=== PATIENT | male | born 1950 | race African-American/Black ===

== ENCOUNTER 2020-04-25 11:19 | Inpatient (IN) | payer MEDICARE, OTHER ==
[~2020-04-25] VITALS: Ht 188 cm; Wt 102.1 kg
[2020-04-25] MEDS ORDERED: ACETAMINOPHEN 650 MG SUPP PR NR (11:30)
[2020-04-25] MEDS ORDERED: ACETAMINOPHEN 650 MG SUPP PR ONE (11:42)
[2020-04-25] MEDS ORDERED: SODIUM CHLORIDE 0.9% 1000ML 1,000 ML IV STA (11:45)
[2020-04-25] MEDS ORDERED: CEFTRIAXONE SOD 1 GM/NS 50 ML 50 ML IV SCH (11:45)
[2020-04-25] MEDS ORDERED: DEXAMETHASONE SOD PHOS INJ 4 MG/ML VIAL IV ONE (11:45)
[2020-04-25] MEDS ORDERED: DEXAMETHASONE SOD PHOS INJ 4 MG/ML VIAL ONE (11:54)
[2020-04-25] MEDS ORDERED: CEFTRIAXONE SOD 1 GM VIAL ONE (11:54)
[2020-04-25] MEDS ORDERED: AZITHROMYCIN 500MG/NS 250 ML 250 ML ONE (11:55)
[2020-04-25 12:02] LABS: HEMATOCRIT 43.4 % (38.2-49.6); HEMOGLOBIN 13.5 g/dL (14.0-18.0); LYMPHOCYTES # (AUTO) 0.6 (1.0-3.2); LYMPHOCYTES % 8.7 % (18.0-39.1); MEAN CORPUSCULAR HEMOGLOBIN 28.2 pg (28-32); MEAN CORPUSCULAR HGB CONC 31.1 g/dL (31-35); MEAN CORPUSCULAR VOLUME 90.8 fL (81-99); MONOCYTES # (AUTO) 0.4 (0.2-0.8); MONOCYTES % 6.4 % (4.4-11.3); NEUTROPHILS # (AUTO) 5.5 (2.1-6.9); NEUTROPHILS % 84.1 % (38.7-80.0); PLATELET COUNT 181 x10e3/uL (140-360); RED BLOOD COUNT 4.78 x10e6/uL (4.3-5.7); RED CELL DISTRIBUTION WIDTH 16.8 % (11.7-14.4)
[2020-04-25 12:11] LABS: INR 1.36; PROTHROMBIN TIME 17.7 seconds (11.9-14.5)
[2020-04-25 12:12] LABS: PARTIAL THROMBOPLASTIN TIME 40.1 seconds (23.8-35.5)
[2020-04-25 12:14] LABS: CLARITY,URINE CLEAR (CLEAR); COLOR,URINE YELLOW (YELLOW)
[2020-04-25 12:15] LABS: KETONES,URINE NEGATIVE (NEGATIVE); LEUKOCYTE ESTERASE ,URINE LARGE (NEGATIVE); NITRITE,URINE NEGATIVE (NEGATIVE); PROTEIN,URINE DIPSTICK 2+ (NEGATIVE); URINE UROBILINOGEN 1 mg/dL (0.2 - 1)
[2020-04-25 12:16] LABS: BACTERIA,URINE RARE /HPF; BILIRUBIN,URINE NEGATIVE (NEGATIVE); EPITHELIAL CELLS,URINE FEW /LPF
[2020-04-25 12:19] LABS: ALBUMIN 2.7 g/dL (3.5-5.0); ALBUMIN/GLOBULIN RATIO 0.6 (0.8-2.0); ANION GAP 8.7 mmol/L (8-16); CALCIUM 10.3 mg/dL (8.4-10.2); CREATININE, SERUM 2.81 mg/dL (0.72-1.25); POTASSIUM 3.7 mmol/L (3.5-5.1)
[2020-04-25 12:26] LABS: CREATINE KINASE MB 0.8 ng/mL (0-5.0)
[2020-04-25] MEDS: AZITHROMYCIN 500MG/NS 250 ML 250 ML IV SCH (12:45)
--- NOTE | 2020-04-25 12:58 | Diagnostic Imaging Report ---
Examination: Single AP view of the chest. COMPARISON: None. INDICATION: Shortness of breath DISCUSSION: Lines/tubes: None. Lungs: Multifocal groundglass and airspace consolidation. Pleura: There is no pleural effusion or pneumothorax. Heart and mediastinum: The heart and the mediastinum are unremarkable. Bones and soft tissues: No acute bony abnormalities. Extensive IMPRESSION: 1. Multifocal pneumonia Signed by: Dr. Nikhil Noriega M.D. on 04/25/2020 12:55 PM
[2020-04-25] MEDS ORDERED: TERAZOSIN HCL2 MG (14:18)
[2020-04-25] MEDS ORDERED: FUROSEMIDE40 MG (14:18)
[2020-04-25] MEDS ORDERED: ATORVASTATIN CA20 MG (14:18)
[2020-04-25] MEDS ORDERED: AMLODIPINE BESYL5 MG (14:18)
[2020-04-25] MEDS ORDERED: MINOXIDIL2.5 MG (14:18)
[2020-04-25] MEDS ORDERED: OMEPRAZOLE20 MG (14:18)
[2020-04-25] MEDS ORDERED: HYDRALAZINE HCL50 MG (14:18)
[2020-04-25] MEDS ORDERED: ALLOPURINOL100 MG (14:18)
[2020-04-25] MEDS ORDERED: ELIQUIS5 MG (14:18)
[2020-04-25] MEDS ORDERED: METOPROLOL TART50 MG (14:18)
--- NOTE | 2020-04-25 14:35 | Emergency Department Note ---
History of Present Illnes History of Present Illness Chief Complaint: COVID PUI History of Present Illness This is a 70 year old male FROM [facility] WITH DX COVID. SOB. FEVER. BASELINE AAOX1. 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 Meat Lugger Required: No Onset (how long ago): unknown Severity: moderate Onset quality: gradual Timing of current episode: constant Chronicity: new Context: Reports recent illness Relieving factors: none Exacerbating factors: none Associated symptoms: Reports cough, Reports shortness of breath Past Medical/Family History Physician Review I have reviewed the patient's past medical and family history. Any updates have been documented here. Past Medical History Recent Fever: Yes Clinical Suspicion of Infectio: Yes New/Unexplained Change in Ment: No Past Medical History: Hypertension, Diabetes, CHF, CVA, Anemia, Other Mental Illness, GERD, Hyperlipedemia Other Medical History: DEMENTIA BPH Social History Smoking Cessation: Unknown if ever smoked Counseling Performed: No Alcohol Use: None Any Illegal Drug Use: No (BRANDO) TB Exposure/Symptoms: No Physically hurt or threatened: No Family History Family history of heart diseas: No Other Any Pre-Existing Lines (PICC,: No Review of Systems ROS Narrative Unable to obtain ROS: Unable to obtain due to, altered mental status Physical Exam Related Data Allergies: Coded Allergies: No Known Allergies (Unverified , 04/25/20) Triage Vital Signs Vital Signs Date Time Temp Pulse Resp B/P (MAP) Pulse Ox O2 Delivery O2 Flow Rate FiO2 04/25/20 11:20 103.7 134 40 126/93 90 Nasal Cannula 4.0 Vital signs reviewed: Yes (O2 SAT 81% ON RA BECK OPERATOR) Physical Exam CONSTITUTIONAL Constitutional: Present cachectic, Present ill appearing HENT HENT: Present normocephalic, Present atraumatic, Present oropharynx clear/moist, Present nose normal HENT L/R: Present left ext ear normal, Present right ext ear normal EYES Eyes: Reports PERRL, Reports conjunctivae normal NECK Neck: Present ROM normal PULMONARY Pulmonary: Present respiratory distress (TACHYPNEIC), Present rhonchi CARDIOVASCULAR Cardiovascular: Present irregular rhythm, Present tachycardia GASTROINTESTINAL Abdominal: Present soft, Present nontender, Present bowel sounds normal GENITOURINARY Genitourinary: Present other (LINEAR SKIN ULCERATION ON PENIS - APPEARS CHRONIC, SCROTUM ENLARGED WITH FLUID) SKIN Skin: Present warm, Present dry MUSCULOSKELETAL Musculoskeletal: Present ROM normal NEUROLOGICAL Neurological: Present alert, Present oriented x 3, Present no gross motor or sensory deficits PSYCHOLOGICAL Psychological: Present other (SOMNOLENT, AROUSABLE, OPENS EYES ON COMMAND, NO SPEECH) Results Laboratory Result Diagram: 04/25/20 1146 04/25/20 1146 Laboratory Laboratory Tests Test 04/25/20 11:46 White Blood Count 6.57 x10e3/uL (4.8-10.8) Red Blood Count 4.78 x10e6/uL (4.3-5.7) Hemoglobin 13.5 g/dL (14.0-18.0) Hematocrit 43.4 % (38.2-49.6) Mean Corpuscular Volume 90.8 fL (81-99) Mean Corpuscular Hemoglobin 28.2 pg (28-32) Mean Corpuscular Hemoglobin Concent 31.1 g/dL (31-35) Red Cell Distribution Width 16.8 % (11.7-14.4) Platelet Count 181 x10e3/uL (140-360) Neutrophils (%) (Auto) 84.1 % (38.7-80.0) Lymphocytes (%) (Auto) 8.7 % (18.0-39.1) Monocytes (%) (Auto) 6.4 % (4.4-11.3) Eosinophils (%) (Auto) 0.0 % (0.0-6.0) Basophils (%) (Auto) 0.0 % (0.0-1.0) Neutrophils # (Auto) 5.5 (2.1-6.9) Lymphocytes # (Auto) 0.6 (1.0-3.2) Monocytes # (Auto) 0.4 (0.2-0.8) Eosinophils # (Auto) 0.0 (0.0-0.4) Basophils # (Auto) 0.0 (0.0-0.1) Absolute Immature Granulocyte (auto 0.05 x10e3/uL (0-0.1) Prothrombin Time 17.7 seconds (11.9-14.5) Prothromb Time International Ratio 1.36 Activated Partial Thromboplast Time 40.1 seconds (23.8-35.5) Urine Color Yellow (YELLOW) Urine Clarity Clear (CLEAR) Urine pH 6 (5 - 7) Urine Specific [place] 1.015 (1.010-1.025) Urine Protein 2+ (NEGATIVE) Urine Glucose (UA) Negative (NEGATIVE) Urine Ketones Negative (NEGATIVE) Urine Blood Small (NEGATIVE) Urine Nitrite Negative (NEGATIVE) Urine Bilirubin Negative (NEGATIVE) Urine Urobilinogen 1 mg/dL (0.2 - 1) Urine Leukocyte Esterase Large (NEGATIVE) Urine RBC 6-10 /HPF (0-5) Urine WBC 11-20 /HPF (0-5) Urine Epithelial Cells Few /LPF (NONE) Urine Bacteria Rare /HPF (NONE) Sodium Level 157 mmol/L (136-145) Potassium Level 3.7 mmol/L (3.5-5.1) Chloride Level 125 mmol/L (98-107) Carbon Dioxide Level 27 mmol/L (22-29) Anion Gap 8.7 mmol/L (8-16) Blood Urea Nitrogen 46 mg/dL (7-26) Creatinine 2.81 mg/dL (0.72-1.25) Estimat Glomerular Filtration Rate 22 ML/MIN (60-) BUN/Creatinine Ratio 16 (6-25) Glucose Level 129 mg/dL (74-118) Calcium Level 10.3 mg/dL (8.4-10.2) Total Bilirubin 0.9 mg/dL (0.2-1.2) Aspartate Amino Transf (AST/SGOT) 25 IU/L (5-34) Alanine Aminotransferase (ALT/SGPT) 11 IU/L (0-55) Alkaline Phosphatase 47 IU/L (40-150) Creatine Kinase 42 IU/L (30-200) Creatine Kinase MB 0.80 ng/mL (0-5.0) Troponin I 0.049 ng/mL (0-0.300) B-Type Natriuretic Peptide 35.6 pg/mL (0-100) Total Protein 7.2 g/dL (6.5-8.1) Albumin 2.7 g/dL (3.5-5.0) Globulin 4.5 g/dL (2.3-3.5) Albumin/Globulin Ratio 0.6 (0.8-2.0) Lab results reviewed: Yes Imaging Imaging results reviewed: Yes Impressions Procedure: [id number] DX/CHEST SINGLE (PORTABLE) Exam Date: 04/25/20 Exam Time: 1230 REPORT STATUS: Signed Examination: Single AP view of the chest. COMPARISON: None. INDICATION: Shortness of breath DISCUSSION: Lines/tubes: None. Lungs: Multifocal groundglass and airspace consolidation. Pleura: There is no pleural effusion or pneumothorax. Heart and mediastinum: The heart and the mediastinum are unremarkable. Bones and soft tissues: No acute bony abnormalities. Extensive IMPRESSION: 1. Multifocal pneumonia Signed by: Dr. Nikhil Noriega M.D. on 04/25/2020 12:55 PM Procedures 12 Lead ECG Interpretation ECG Interpretation : ECG: ECG 1 Meat Lugger: Interpreted by ED physician Date: Apr 25, 2020 Time: 11:40 Rhythm: atrial flutter (VARIABLE BLOCK) Rate: tachycardia (115) QRS axis: right Clinical Impression: abnormal ECG Critical Care Time Total Critical Care Time (min): 35 Critical care time exclusive o: separately billable procedures Critcal care time spent by me: discussion w consultants, discussion w primary provider, interpret cardiac output measures, evaluation patient response to tx, obtaining hx from patient/surrogate, order/perform tx or interventions, order/review laboratory studies, order/review radiographic studies, pulse oximetry, re-evaluation of patient condition Assessment & Plan Medical Decision Making MDM CBC, CHEM, CARDIACS, ECG, PANCX'S, UA, CXR, COVID SWAB, CT BRAIN - R/O COVID, PNEUMONIA, STEMI/NSTEMI, UTI, CERBRAL BLEED, RENAL FAILURE, ELECTROLYTE ABNL Reassessment Reassessment ADMIT DR ROSE Assessment & Plan Final Impression: (1) Pneumonia due to COVID-19 virus (2) Hypernatremia (3) Renal insufficiency Depart Disposition: ADMITTED Last Vital Signs Date Time Temp Pulse Resp B/P (MAP) Pulse Ox O2 Delivery O2 Flow Rate FiO2 04/25/20 13:53 98.9 118 28 126/88 95 04/25/20 11:20 Nasal Cannula 4.0 Home Meds Reported Medications Amlodipine Besylate (AMLODIPINE BESYLATE) 5 Mg Tablet 04/25/20 Atorvastatin Calcium (ATORVASTATIN CALCIUM) 20 Mg Tablet 04/25/20 Minoxidil (MINOXIDIL) 2.5 Mg Tablet 04/25/20 Hydralazine Hcl (HYDRALAZINE HCL) 50 Mg Tablet 04/25/20 Apixaban (Eliquis) 5 Mg Tablet 04/25/20 Allopurinol (ALLOPURINOL) 100 Mg Tablet 04/25/20 Omeprazole (OMEPRAZOLE) 20 Mg Capsule. 04/25/20 Terazosin Hcl (TERAZOSIN HCL) 2 Mg Capsule 04/25/20 Metoprolol Tartrate (METOPROLOL TARTRATE) 50 Mg Tablet 04/25/20 Furosemide (FUROSEMIDE) 40 Mg Tablet 04/25/20 Medications in the ED Acetaminophen 650 mg ONCE MD Last administered on 04/25/20at 12:45; Admin Dose 650 MG; Start 04/25/20 at 11:30; Stop 04/25/20 at 12:59; Status DC Acetaminophen 650 mg STK-MED ONCE MD ; Start 04/25/20 at 11:42; Stop 04/25/20 at 11:37; Status DC Dexamethasone Sodium Phosphate 8 mg STK-MED ONCE .ROUTE ; Start 04/25/20 at 11:54; Stop 04/25/20 at 11:49; Status DC Ceftriaxone Sodium 1 gm STK-MED ONCE .ROUTE ; Start 04/25/20 at 11:54; Stop 04/25/20 at 11:49; Status DC Azithromycin 250 ml @ ud STK-MED ONCE .ROUTE ; Start 04/25/20 at 11:55; Stop 04/25/20 at 11:49; Status DC Sodium Chloride 1,000 ml @ 0 mls/hr Q0M STAT IV Last administered on 04/25/20at 12:45; Admin Dose 1,000 MLS/HR; Start 04/25/20 at 11:45; Stop 04/25/20 at 11:51; Status DC Ceftriaxone Sodium 50 ml @ 100 mls/hr Q24H IV Last administered on 04/25/20at 12:45; Admin Dose 100 MLS/HR; Start 04/25/20 at 11:45; Stop 05/02/20 at 11:44 Azithromycin 250 ml @ 200 mls/hr Q24H IV Last administered on 04/25/20at 12:45; Admin Dose 200 MLS/HR; Start 04/25/20 at 11:45; Stop 05/02/20 at 11:44 Dexamethasone Sodium Phosphate 6 mg NOW ONCE IV Last administered on 04/25/20at 12:45; Admin Dose 6 MG; Start 04/25/20 at 11:45; Stop 04/25/20 at 11:54; Status DC Metoprolol Tartrate 2.5 mg ONCE ONCE IV ; Start 04/25/20 at 14:30; Stop 04/25/20 at 14:31; Status TETO YOON MD Apr 25, 2020 14:34
[2020-04-25] MEDS ORDERED: METOPROLOL TARTRATE INJ 1 MG/ML VIAL IV ONE (15:00)
[2020-04-25] MEDS ORDERED: DEXTROSE 5%/0.45% SOD CHL 1,000 ML IV ONE (15:30)
[2020-04-25] MEDS ORDERED: METOPROLOL TARTRATE INJ 1 MG/ML VIAL ONE (18:08)
--- NOTE | 2020-04-25 18:18 | Diagnostic Imaging Report ---
Examination: CT head without contrast Clinical Indication: Confusion; altered mental status. Technique: Transaxial noncontrast images from the skull base through the vertex were obtained. Sagittal and coronal reformatted images were done. Dose modulation, iterative reconstruction, and/or weight based adjustment of the mA/kV was utilized to reduce the radiation dose to as low as reasonably achievable. Comparison: None. Findings: Scalp: No abnormalities. Bones: Intact. No fractures. No blastic or lytic lesions. Brain sulci: Generalized volume loss with enlarged temporal horn of the left lateral ventricle. Ventricles: No hydrocephalus. . Extra-axial space: No abnormalities. Parenchyma: There are patchy and confluent areas of low-attenuation within subcortical and periventricular white matter, nonspecific, but could represent microvascular ischemic disease. No masses, hemorrhage, or acute cortical based vascular insults. Suprasellar region: No abnormalities. Craniocervical junction: The foramen magnum is patent. No Chiari one malformation. Incidental findings: Atherosclerotic calcification of the cavernous and supraclinoid internal carotid and V4 segments of the bilateral vertebral arteries. Impression: 1. No acute intracranial finding. 2. Generalized volume loss with enlarged temporal horn of the left lateral ventricle, which can be seen in Alzheimer dementia. 3. Chronic microvascular ischemic change. Signed by: Dr. Yumiko Laughlin M.D. on 04/25/2020 6:15 PM
--- NOTE | 2020-04-25 18:29 | NUR ---
PT SEEN BY DR ROSE'S PARTNER
[2020-04-25 19:00] VITALS: BP 130/96
[2020-04-25] MEDS ORDERED: HEPARIN SOD (PORCINE) 5,000 UNIT/ML VIAL IV ONE (19:45)
[2020-04-25 20:00] VITALS: BP 131/97
[2020-04-25] MEDS ORDERED: HEPARIN SOD (PORCINE) 5,000 UNIT/ML VIAL ONE (20:14)
[2020-04-25] MEDS ORDERED: HEPARIN 25,000 UNIT DRIP IV ONE (20:14)
[2020-04-25 21:00] VITALS: BP 141/104
[2020-04-25] MEDS ORDERED: HEPARIN SOD (PORCINE) 5,000 UNIT/ML VIAL IV NR (21:00)
[2020-04-25] MEDS ORDERED: HEPARIN 25,000 UNIT/D5W 250ML 250 ML IV SCH (21:28)
[2020-04-25] MEDS ORDERED: HEPARIN 25,000 UNIT 25,000 UNIT in DEXTROSE 5% 250ML 250 ML IV SCH (21:30)
[2020-04-25] MEDS ORDERED: VANCOMYCIN 1GM/NS 250 ML 250 ML IV ONE (21:30)
[2020-04-25 22:00] VITALS: BP 136/95
--- NOTE | 2020-04-25 22:01 | Consultation ---
DATE OF CONSULTATION: Pulmonary Critical Care Consultation CHIEF COMPLAINT: Decreased responsiveness and possible pneumonia. HISTORY OF PRESENT ILLNESS: The patient is a 70-year-old man. He has a history of a prior stroke. He also has a history of dementia, atrial fibrillation, and hypertension. He was transferred to the emergency department from [facility] because of worsening dyspnea and congestion. He was noted to have bilateral infiltrates as well as some fever. PAST MEDICAL HISTORY: 1. Atrial fibrillation. 2. Prior cerebrovascular accident. 3. Hypertension. 4. Gout. 5. Dementia. 6. Prostatic hypertrophy. PAST SURGICAL HISTORY: Noncontributory and unobtainable. ALLERGIES: THERE ARE NO KNOWN DRUG ALLERGIES. SOCIAL HISTORY: The patient is a resident of [facility]. FAMILY HISTORY: Noncontributory. REVIEW OF SYSTEMS: The patient has history of fevers. There is poor responsiveness at baseline is worsened. He also has congestion. There was no report of nausea or vomiting. There was no report of chest pain. PHYSICAL EXAMINATION: VITAL SIGNS: The blood pressure is 122/86 and saturation was 94% on 4 L. T-max 103.7 and is now afebrile. The respiratory rate is 18. HEENT: Shows no facial swelling or erythema. LYMPHATIC: Shows no submandibular, cervical, or supraclavicular adenopathy. CARDIAC: Reveals a regular rate and rhythm with normal S1 and S2. LUNGS: Auscultation of lungs reveals crackles at the bases. There is no wheezing. ABDOMEN: Soft and nontender. There is no rebound or guarding. EXTREMITIES: Shows no leg edema. NEUROLOGICAL: Shows the patient to respond poorly. He has increased tone throughout. LABORATORY DATA: BUN to creatinine ratio is 46 to 2.81. Sodium is 157. Albumin is 2.7. White blood cell count is 6.5 and hemoglobin is 13.5. The platelet count is 181. RADIOGRAPHIC DATA: Chest x-ray shows bilateral infiltrates. IMPRESSION: 1. Pneumonia with sepsis, present on admission. 2. Acute kidney injury. 3. Hypernatremia. 4. Atrial fibrillation. 5. Dementia. 6. Hypertension. PLAN: 1. Antibiotics to cover for possible aspiration and healthcare-associated organisms. 2. Await COVID-19 testing. 3. Continue to give volume and free water in the form of half-normal saline. 4. Monitor sodium as well as BUN and creatinine. 5. Continue current antihypertensive regimen. 6. Await completion of Cardiology evaluation. 7. Clarify code status with family. MD BREE Corrales/RADHA /[id number]
--- NOTE | 2020-04-25 22:01 | History and Physical ---
I cannot access his reports on the computer. The patient is a very historian. CHIEF COMPLAINT: Sent from [facility] for high fever and he was COVID positive. HISTORY OF PRESENTING ILLNESS: A 70-year-old male with history of gout, dementia, CVA, hypercholesterolemia, and hypertension, was sent from a longterm with fever and not eating well. REVIEW OF SYSTEMS: Limited because of his mental status. PAST MEDICAL HISTORY: Hypertension, probable AFib flutter, hypercholesterolemia, and gout. ALLERGIES: NONE. SOCIAL HISTORY: He has been in the longterm. I do not know baseline status, history unknown. He lives in a longterm. PHYSICAL EXAMINATION: GENERAL: He is an elderly male. VITAL SIGNS: His temperature is 103.7, pulse is 134, blood pressure is 126/93, and he is saturating on 2 L nasal cannula around 90%. HEENT: PERRLA. NECK: Supple. No lymphadenopathy. CHEST: Equal air entry bilaterally. No added sounds. ABDOMEN: Scaphoid, soft, and nontender. EXTREMITIES: There is no edema. CLINICAL EDUCATION SPECIALIST: He is awake only. Responds to the name. Apart from that, I cannot get any history from him and he is very stiff. LABORATORY DATA: His WBC count is 6.5, hemoglobin is 13, and platelet count is 181. Segmented is 84% with lymphopenia. His sodium is 157, BUN is 46, creatinine is 2.81, and calcium is 10.3. Albumin is 2.7. His urine is suggestive of UTI as well and his PT/INR is within normal limits. His COVID virus testing here is pending, but at the longterm he was positive and his chest x-ray was showing a multifocal pneumonia. ASSESSMENT: 1. Fever with chest x-ray abnormal multifocal pneumonia and his COVID test positive in the longterm, probably COVID infection symptomatic. We will admit him, get an ID and Pulmonary consult done. I could not put any orders at this time. I spoke with the ER physician and he was already given some antibiotics and probably, he will need steroids. 2. Acute kidney injury. We will give him a gentle hydration in view of his COVID infection. 3. Atrial fibrillation flutter, probably related to the fever. We will get a Cardiology consult and pneumonia, Pulmonary consult and as per the nurse, she has spoken with the and she wanted him to be a full code, and Dr. Ca will follow the patient from tomorrow. MD VALERIE Mallory/RADHA /[id number]
[2020-04-25 23:00] VITALS: BP 141/100
--- NOTE | 2020-04-25 23:06 | Consultation ---
DATE OF CONSULTATION: Cardiology Consultation REASON FOR CONSULTATION: Atrial fibrillation. HISTORY OF PRESENT ILLNESS: Mr. Briscoe is a 70-year-old man, snf resident with history of dementia, CVA, anemia, dyslipidemia, diabetes, chronic heart failure, unspecified, presents with fever and dyspnea. Diagnosed with COVID-19 reportedly, noted to have atrial flutter on social services designee. He is on home medications Eliquis. REVIEW OF SYSTEMS: Unable to assess due to the patient's altered sensorium. ALLERGIES: NO KNOWN DRUG ALLERGIES. PAST MEDICAL HISTORY: Hypertension, diabetes, dyslipidemia, reflux, anemia, dementia, and BPH. SOCIAL HISTORY: Negative x3. FAMILY HISTORY: Noncontributory. PHYSICAL EXAMINATION: VITAL SIGNS: Temperature 100.1, heart rate 95, respiratory rate 18, blood pressure 122/86, respiratory rate 18, and O2 saturation 94% on 4 L/minute nasal cannula. Telemetry, in atrial flutter with controlled ventricular response. GENERAL: Altered mental status. NECK: No JVD. CHEST: With scattered rales and decreased breath sounds. CARDIOVASCULAR: Irregular rate and rhythm. Normal S1 and S2. Systolic ejection murmur. No S3 or S4. ABDOMEN: Soft. Bowel sounds positive. EXTREMITIES: No edema. Warm extremities. CARDIOVASCULAR MEDICATIONS: Reviewed. Ceftriaxone and azithromycin, dextrose and sodium chloride fluid status post metoprolol. LABORATORY DATA: White blood cells 6.5, hemoglobin 13.5, and platelets 181. INR 1.3. Serial troponins negative. BNP 35, creatinine 2.8, potassium 3.5, bicarbonate 27, and sodium 157. Brain CT, no acute intracranial findings, generalized volume loss, chronic microvascular changes, multifocal pneumonia on chest x-ray. ASSESSMENT AND PLAN: A 70-year-old man with COVID-19 infection, community-acquired pneumonia, hypertension, dyslipidemia, diabetes, atrial flutter, and history of chronic heart failure, unspecified. RECOMMEND: 1. Resume beta-yohannes. 2. Initiate IV heparin drip for thromboembolic risk prevention. Monitor renal function. If remains stable, consider switch to Eliquis if no procedures planned once more stable clinically. For now, IV heparin to allow a quick transition in and out of anticoagulation as needed should condition worsen. Guarded prognosis. Supportive care. Consider steroids. MD OVIDIO Mendez/LIONL /[id number]
[2020-04-26] VITALS (7 sets, daily range): BP systolic 129–152; BP diastolic 99–108
[2020-04-26 05:00] LABS: BASOPHILS % 0.1 % (0.0-1.0); HEMATOCRIT 42.8 % (38.2-49.6); HEMOGLOBIN 13.4 g/dL (14.0-18.0); LYMPHOCYTES # (AUTO) 0.5 (1.0-3.2); MEAN CORPUSCULAR HEMOGLOBIN 28.5 pg (28-32); MEAN CORPUSCULAR HGB CONC 31.3 g/dL (31-35); MEAN CORPUSCULAR VOLUME 91.1 fL (81-99); MONOCYTES # (AUTO) 0.4 (0.2-0.8); MONOCYTES % 4.3 % (4.4-11.3); NEUTROPHILS # (AUTO) 7.3 (2.1-6.9); NEUTROPHILS % 88.9 % (38.7-80.0); PLATELET COUNT 175 x10e3/uL (140-360); RED CELL DISTRIBUTION WIDTH 16.7 % (11.7-14.4)
[2020-04-26 05:13] LABS: ALBUMIN 2.6 g/dL (3.5-5.0); ALBUMIN/GLOBULIN RATIO 0.5 (0.8-2.0); ANION GAP 12.2 mmol/L (8-16); CALCIUM 10.3 mg/dL (8.4-10.2); CREATININE, SERUM 2.49 mg/dL (0.72-1.25); POTASSIUM 4.2 mmol/L (3.5-5.1)
[2020-04-26 07:57] LABS: CREATINE KINASE MB 2.3 ng/mL (0-5.0)
[2020-04-26] MEDS ORDERED: MEROPENEM 1GRAM 1 GM in SODIUM CHLORIDE 0.9% 100 ML 100 ML IV SCH (09:00)
[2020-04-26] MEDS: METOPROLOL TARTRATE 25 MG TAB PO SCH ×3 (09:15→20:23)
[2020-04-26] MEDS: HEPARIN 25,000 UNIT 1,000 UNIT in DEXTROSE 5% 250ML 250 ML IV SCH ×3 (09:15→23:00)
--- NOTE | 2020-04-26 10:28 | Diagnostic Imaging Report ---
EXAMINATION: CHEST SINGLE (PORTABLE) INDICATION: Pneumonia COMPARISON: Chest radiograph of 04/25/2020 FINDINGS: LINES/TUBES:EKG leads overlie the chest. LUNGS:The lungs are moderately inflated. Persistent bilateral multifocal airspace opacities. PLEURA:No pleural effusion or pneumothorax. MEDIASTINUM:The cardiomediastinal silhouette appears unchanged in size and shape. BONES/SOFT TISSUES:No acute osseous injury. ABDOMEN:No free air under the diaphragm. IMPRESSION: Unchanged bilateral multifocal airspace opacities consistent with pneumonia. Signed by: Christiano Duckworth MD on 04/26/2020 10:25 AM
[2020-04-26] MEDS ORDERED: MEROPENEM 1 GM VIAL ONE (11:48)
[2020-04-26] MEDS ORDERED: SODIUM CHLORIDE 0.9% 100 ML ONE (11:49)
[2020-04-26] MEDS ORDERED: CEFTRIAXONE SOD 1 GM/NS 50 ML 50 ML IV SCH (13:45)
--- NOTE | 2020-04-26 14:03 | Progress Note ---
DATE: 04/26/2020 Cardiology Progress Note SUBJECTIVE: No new events Ext: HR 90 BP 120/70 respiratory rate 14, and O2 saturation 96%, BMI 28.8. GENERAL: Somnolent with altered mental status. NECK: No JVD. CHEST: Rales and decreased breath sounds. CARDIOVASCULAR: Irregularly irregular rate and rhythm. Normal S1, S2. ABDOMEN: Soft. EXTREMITIES: Edema. Warm distal extremities. CARDIOVASCULAR MEDICATION: Reviewed, on: 1. IV heparin drip. 2. Metoprolol tartrate 12.5 mg every 12 hours. STUDIES: Reviewed. Creatinine 2.4. White blood cells 8, hemoglobin 13.4, and platelets 175. INR 1.3, PTT 17, and PTT 116, A/P PAFl COVID19 infection/ PNA HTN recs Continue Metoprolol IV heparin. If remains stable, consider switch to eliquis over the next 48 hr MD OVIDIO Mendez/RADHA /[id number]
[2020-04-26] MEDS: AZITHROMYCIN 500MG/NS 250 ML 250 ML IV SCH (14:26)
[2020-04-26 16:35] LABS: CREATINE KINASE MB 1.9 ng/mL (0-5.0)
[2020-04-26] MEDS: ACETAMINOPHEN 650 MG SUPP PR PRN (16:56)
[2020-04-26] MEDS ORDERED: LABETALOL HCL 5 MG/ML 20ML VIAL IV PRN (17:00)
--- NOTE | 2020-04-26 18:50 | Consultation ---
DATE OF CONSULTATION: HISTORY OF PRESENT ILLNESS: This patient is COVID. This patient, who is a 70-year-old male with history of gout, dementia, CVA, hypercalcemia, hypertension, noncommunicative from a snf. He was sent to emergency room with fever and not doing well, not eating well. The patient was totally confused. He was brought here, his COVID-19 came back negative. The patient does not provide any meaningful information. We do not know how long he has been sick. PAST MEDICAL HISTORY: As above. PAST SURGICAL HISTORY: Could not be obtained. REVIEW OF SYSTEMS: Could not be obtained, the patient is from a snf. SOCIAL HISTORY: From snf. FAMILY HISTORY: Could not be obtained. PHYSICAL EXAMINATION: GENERAL: Currently alert, noncommunicative. VITAL SIGNS: Stable, currently on 15 L. HEENT: He is not icteric. NECK: Supple. CHEST: Crackles bilateral. HEART: S1 and S2. No S3, S4, or murmur. ABDOMEN: Soft. Bowel sounds present. IMAGING: The patient currently was found to be in atrial fibrillation and he is on heparin drip. LABORATORY DATA: His urine showed gram-negative rods. His blood cultures negative. White count 8.16, hemoglobin 13, sodium 139, potassium 4.2, creatinine of 2.49. IMPRESSION: 1. COVID-19 on admission. 2. Respiratory failure, on admission. 3. Continue azithromycin 500 daily three days. 4. Rocephin 1 g daily for 5 days. 5. Decadron 6 mg daily for 10 days. He is currently on anticoagulation with heparin. He is not a candidate for remdesivir. 6. Chronic kidney disease, need to discuss the issue of DNR with the family. 7. Needs to be on droplet and contact isolation as ordered. 8. Atrial fibrillation per Cardiology. Discussed with the medical team. We will follow. MD JAMES Kwong/RADHA /[id number]
--- NOTE | 2020-04-26 19:07 | NUR ---
Nursing report given to Bryant LEY.
[2020-04-26] MEDS ORDERED: SODIUM CHLORIDE 0.45% 1,000 ML IV SCH (20:00)
[2020-04-26] MEDS: CEFEPIME 1GM/NS 0.9% 50 ML 50 ML IV SCH (21:01)
--- NOTE | 2020-04-26 22:36 | Progress Note ---
DATE: SUBJECTIVE: The patient is afebrile. He reports some chills. He has some tachycardia. PHYSICAL EXAMINATION: VITAL SIGNS: Blood pressure is 105/96 and heart rate is 108. Saturation is 98% on nasal cannula with high flow oxygen. His T-max was 101.2 earlier. HEENT: Shows no facial swelling or erythema. CARDIAC: Reveals regular rate and rhythm with normal S1 and S2. LUNGS: Auscultation of lungs reveals crackles at the bases. There is no wheezing. ABDOMEN: Soft and nontender. There is rebound or guarding. EXTREMITIES: Shows no leg edema or calf tenderness. There is no cyanosis or clubbing. SKIN: Shows no rashes. NEUROLOGICAL: Shows no focal abnormalities. LABORATORY DATA: CBC is within normal limits. BUN to creatinine ratio is 47 to 2.49 and sodium is 159. Albumin is 2.6. RADIOGRAPHIC DATA: Chest x-ray shows bilateral infiltrates. IMPRESSION: 1. COVID-19 and viral pneumonia. 2. Acute kidney injury. 3. Atrial fibrillation. 4. Hypernatremia. 5. Urinary tract infection with gram-negative rods and sepsis. PLAN: 1. Continue free water and volume. 2. antibiotics to cover for urinary tract infection with gram-negative rods. 3. Nephrology consultation. 4. Continue current antiarrhythmic agent. 5. Prognosis remains poor. Best option would be antibiotics, cardiac medicines, and symptomatic treatment with no heroic measures. MD BREE Corrales/RADHA /[id number]
[2020-04-27] MEDS: ACETAMINOPHEN 650 MG SUPP PR PRN (00:50)
[2020-04-27 04:12] LABS: BASOPHILS % 0.2 % (0.0-1.0); HEMATOCRIT 49.7 % (38.2-49.6); HEMOGLOBIN 15.1 g/dL (14.0-18.0); LYMPHOCYTES # (AUTO) 0.4 (1.0-3.2); LYMPHOCYTES % 3.5 % (18.0-39.1); MEAN CORPUSCULAR HEMOGLOBIN 28.5 pg (28-32); MEAN CORPUSCULAR HGB CONC 30.4 g/dL (31-35); MEAN CORPUSCULAR VOLUME 93.8 fL (81-99); MONOCYTES # (AUTO) 0.2 (0.2-0.8); MONOCYTES % 1.9 % (4.4-11.3); NEUTROPHILS # (AUTO) 11.9 (2.1-6.9); NEUTROPHILS % 93.7 % (38.7-80.0); PLATELET COUNT 199 x10e3/uL (140-360); RED CELL DISTRIBUTION WIDTH 17.2 % (11.7-14.4)
[2020-04-27 04:32] LABS: ALBUMIN 2.6 g/dL (3.5-5.0); ALBUMIN/GLOBULIN RATIO 0.5 (0.8-2.0); ANION GAP 14.9 mmol/L (8-16); CREATININE, SERUM 2.43 mg/dL (0.72-1.25); POTASSIUM 3.9 mmol/L (3.5-5.1)
[2020-04-27] MEDS ORDERED: ACETAMINOPHEN 1000 MG/100 ML IV STA (04:43)
[2020-04-27] MEDS ORDERED: DEXTROSE 5% 1,000 ML IV SCH (04:45)
[2020-04-27] MEDS ORDERED: ACETAMINOPHEN 1000 MG/100 ML IV PRN (06:00)
[2020-04-27] MEDS ORDERED: ALLOPURINOL 100 MG TAB PO SCH (06:00)
[2020-04-27] MEDS ORDERED: ACETAMINOPHEN 1000 MG/100 ML IV SCH (06:00)
--- NOTE | 2020-04-27 07:20 | NUR ---
RECEIVED REPORT FROM MILADY Andersen, EKG COMPLETED. 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 O2 SATS 88-90% PATIENT UNRESPONSIVE, INTERMITTENT COUGH. PATIENT ON 15L NRB/4L/NC NGT LEFT NARE. AUSUCULTATED AIR HEPARIN 25,000/250 INFUSING @1300 UNITS/HR (13ML), VIA 20G L-FA. NEXT COAGS DUE AT 10 AM D5W INFUSING AT 125 CC/HR VIA LEFT HAND 20 GUAGE RIGHT BICEP 20 GUAGE, PATENT, GOOD BLOOD RETURN SKIN BREAK DOWN TO SCROTUM AND PENIS. WALSH CATHETER WITH TEMP PROBE, DRAINING CLEAR YELLOW URINE. HYPOACTIVE BOWEL SOUNDS. CRACKLES IN BASIS
[2020-04-27] MEDS ORDERED: PANTOPRAZOLE SOD 40 MG TABEC PO SCH (07:30)
[2020-04-27] MEDS: HEPARIN 25,000 UNIT 1,000 UNIT in DEXTROSE 5% 250ML 250 ML IV SCH (08:13)
[2020-04-27] MEDS: METOPROLOL TARTRATE 25 MG TAB PO SCH (08:45)
--- NOTE | 2020-04-27 08:45 | NUR ---
NGT REPOSITIONED. AUSCULTATED AIR OVER ABDOMEN, OBTAINED YELLOW LIQUID IN TUBE ON DRAW BACK, FLUSHES WELL
--- NOTE | 2020-04-27 08:59 | Diagnostic Imaging Report ---
EXAMINATION: CHEST SINGLE (PORTABLE), ABDOMEN-1VIEW (KUB) INDICATION: Respiratory failure, viral pneumonia COMPARISON: Chest radiograph 04/26/2020 FINDINGS: LINES/TUBES:Interval placement of NG tube which coils at the gastroesophageal junction. EKG leads overlie the chest. LUNGS:The lungs are moderately inflated. Interval increase in bilateral multifocal consolidative airspace opacities. PLEURA:No pleural effusion or pneumothorax. MEDIASTINUM:The cardiomediastinal silhouette appears unchanged in size and shape. BONES/SOFT TISSUES:No acute osseous injury. ABDOMEN:No free air under the diaphragm. Nonobstructive bowel gas pattern. Two IVC filters project over the abdomen. The superior filter appears fragmented and extends beyond the devlin of the IVC. The inferior filter appears incompletely opened. IMPRESSION: Interval increase in bilateral multifocal consolidative airspace opacities consistent with known pneumonia. NG tube coils in the distal esophagus and should be repositioned. Two IVC filters in place, neither of which appear optimally positioned. Signed by: Christiano Duckworth MD on 04/27/2020 8:56 AM
[2020-04-27] MEDS: CEFEPIME 1GM/NS 0.9% 50 ML 50 ML IV SCH (09:00)
[2020-04-27] MEDS ORDERED: PANTOPRAZOLE 40 MG 10ML VIAL IV SCH (09:00)
--- NOTE | 2020-04-27 10:00 | NUR ---
COAGS DRAWN, SENT TO LAB. AWAITING RESULTS TO CHANGE HEPARIN DRIP
[2020-04-27 10:06] LABS: ABG HCO3 24 mmol/L (22-26); ABG PCO2 38 mmHg (35-45); ABG PO2 60 mmHg (80-105)
--- NOTE | 2020-04-27 10:31 | NUR ---
PATIENT WITH HARD COUGH, OBTAINED THICK DARK BLOODY SPUTUM ON SUCTIONING
--- NOTE | 2020-04-27 10:47 | NUR ---
SPOKE WITH ZAIRA Garnica [place] [facility] REPORT GIVEN
--- NOTE | 2020-04-27 10:48 | Discharge Summary ---
HOSPITAL COURSE: A 70-year-old male patient from [facility], history of previous stroke, and bed bound. He is COVID positive, admitted for lethargy, not eating. The patient was admitted. He is currently on 4 L. Chest x-ray showed multifocal pneumonia. Had acute kidney injury. The patient is getting transferred to [facility] for management and will be discharged on transfer to [facility]. DISCHARGE DIAGNOSES: 1. Pneumonia. 2. Acute kidney injury. 3. Hyponatremia. 4. Multifocal pneumonia. MD JIGNESH Scott/MODL /[id number]
--- NOTE | 2020-04-27 10:50 | NUR ---
SPOKE WITH PATIENTS , AKI. MADE HER AWARE HER WAS BEING TRASFERED TO [facility]
--- NOTE | 2020-04-27 11:05 | NUR ---
PTT 86.8, HEPARIN DECREASED FROM 1300 UNITS TO 1200 UNITS
--- NOTE | 2020-04-27 11:41 | NUR ---
SPOKE WITH ZAIRA Andersen WITH [facility]. SHE WAS UPDATED THAT PATIENT WAS ON THEIR WAY. SHE WILL CALL PATIENTS WHEN HE ARRIVES TO UPDATE HER
--- NOTE | 2020-04-27 18:25 | Progress Note ---
DATE: SUBJECTIVE: The patient who remains in the emergency room, we are plan [facility]. The patient comes from a alf. He is COVID positive. Chest x-ray show multifocal pneumonia. REVIEW OF SYSTEMS: He is just weak. PHYSICAL EXAMINATION: GENERAL: He is currently alert, but currently afebrile. HEENT: Not icteric. NECK: Supple. CHEST: A few crackles. IMPRESSION: Coronavirus disease-19, dementia, acute kidney injury, concern of aspiration pneumonia. The patient is being transferred to [facility]. Continue as ordered, which was done after the patient was transferred. MD JAMES Kwong/RADHA /[id number]
== END 2020-04-27 11:38 | DRG 871 ==
LOC: ER 11:23 → ERHOLD 11:50
PROVIDERS: ADMIT Internal Medicine; ATTEND Internal Medicine
DX: A41.9 Sepsis, unspecified organism (principal); U07.1 COVID-19; J12.89 Other viral pneumonia; J96.90 Respiratory failure, unspecified, unspecified whether with hypoxia or hypercapnia; N17.9 Acute kidney failure, unspecified; E87.0 Hyperosmolality and hypernatremia; E87.1 Hypo-osmolality and hyponatremia; I48.92 Unspecified atrial flutter; N39.0 Urinary tract infection, site not specified; I13.0 Hypertensive heart and chronic kidney disease with heart failure and stage 1 through stage 4 chronic kidney disease, or unspecified chronic kidney disease; Z86.73 Personal history of transient ischemic attack (TIA), and cerebral infarction without residual deficits; N40.0 Benign prostatic hyperplasia without lower urinary tract symptoms; F03.90 Unspecified dementia, unspecified severity, without behavioral disturbance, psychotic disturbance, mood disturbance, and anxiety; M10.9 Gout, unspecified; I48.91 Unspecified atrial fibrillation; D64.9 Anemia, unspecified; E83.52 Hypercalcemia; B96.89 Other specified bacterial agents as the cause of diseases classified elsewhere; I50.9 Heart failure, unspecified; N18.9 Chronic kidney disease, unspecified; E11.22 Type 2 diabetes mellitus with diabetic chronic kidney disease; Z79.4 Long term (current) use of insulin; E78.00 Pure hypercholesterolemia, unspecified
CPT/HCPCS: 36415; 36600; 51700; 70450; 71045; 74018; 80053; 81001; 82550; 82553; 82805; 83880; 84484; 85025; 85610; 85730; 87040; 87086; 87186; 93005; 99285; J0456; J0692; J0696; J1100; J1644; J2185; J7050; J7070; U0002